=== PATIENT | female | born 1990 | race American Indian/Alaskan Native ===

== ENCOUNTER 2017-07-17 17:58 | Emergency (ER) | payer MEDICAID ==
[2017-07-17 18:15] VITALS: BP 145/91; PULSE 83; RESP 16; TEMP 98.4; O2SAT 100
--- NOTE | 2017-07-17 18:24 | ED PDOC ---
HPI: General Adult Time Seen by Provider: 07/17/17 18:16 Chief Complaint (Nursing): Med Refill Chief Complaint (Provider): Med Refill History Per: Patient History/Exam Limitations: no limitations Onset/Duration Of Symptoms: Hrs (prior to arrival ) Additional Complaint(s): Lynn Dennis is a 26 year old female, 13 weeks , presenting to the ED for a medication refill of Diclegis for morning sickness. Her last dose was taken 2 days prior to arrival and reports taking 2 tablets every day. The patients next appointment with her OBGYN is next Tuesday. PMD: Alton Dooley MD Past Medical History Reviewed: Historical Data, Nursing Documentation, Vital Signs Vital Signs: Last Vital Signs Temp 98.4 F 07/17/17 18:13 Pulse 83 07/17/17 18:13 Resp 16 07/17/17 18:13 BP 145/91 H 07/17/17 18:13 Pulse Ox 100 07/17/17 18:24 - Medical History PMH: No Chronic Diseases - Family History Family History: States: Unknown Family Hx - Home Medications Home Medications: Ambulatory Orders Medication Instructions Recorded Doxylamine/Pyridoxine HCl (B6) 2 each PO QPM #20 tablet. 07/17/17 [Antonio Amezquita 10-10 mg Tablet] - Allergies Allergies/Adverse Reactions: Allergies Allergy/AdvReac Type Severity Reaction Status Date / Time No Known Allergies Allergy Verified 07/17/17 18:13 Review of Systems ROS Statement: Except As Marked, All Systems Reviewed And Found Negative Physical Exam - Reviewed Nursing Documentation Reviewed: Yes Vital Signs Reviewed: Yes - Physical Exam Appears: Positive for: Non-toxic, No Acute Distress Head Exam: Positive for: ATRAUMATIC, NORMOCEPHALIC Skin: Positive for: Normal Color, Warm, Dry Eye Exam: Positive for: Normal appearance Neck: Positive for: Normal Respiratory: Negative for: Respiratory Distress Neurologic/Psych: Positive for: Alert, Oriented - ECG O2 Sat by Pulse Oximetry: 100 (RA) Pulse Ox Interpretation: Normal Medical Decision Making Medical Decision Making: Time: 18:16 Impression: Med Refill Plan: Rx Diclegis and follow up with OBGYN. Scribe Attestation: Documented by Bridgett Lopes, acting as a scribe for Angy Rodrigez PA-C. Provider Scribe Attestation: All medical record entries made by the Scribe were at my direction and personally dictated by me. I have reviewed the chart and agree that the record accurately reflects my personal performance of the history, physical exam, medical decision making, and the department course for this patient. I have also personally directed, reviewed, and agree with the discharge instructions and disposition. Disposition - Clinical Impression Clinical Impression: Medication refill, Nausea/vomiting in - Disposition Disposition Time: 18:27 Condition: STABLE Prescriptions: Doxylamine/Pyridoxine HCl (B6) [Antonio Amezquita 10-10 mg Tablet] 2 each PO QPM #20 tablet. Instructions: Doxylamine/Pyridoxine (By mouth) Forms: [employer] (Libyan), [facility] ED School/Work Excuse
== END 2017-07-17 18:35 | disposition home or self-care (01) ==
LOC: H.ER 17:58
DX: Z76.0 Encounter for issue of repeat prescription (principal); Z33.1 Pregnant state, incidental

== ENCOUNTER 2017-08-10 12:43 | Emergency (ER) | payer MEDICAID ==
[2017-08-10 12:54] VITALS: TEMP 98; O2SAT 100
[2017-08-10] MEDS ORDERED: Sodium Chloride 0.9% 1,000 ML IV STA (13:25)
--- NOTE | 2017-08-10 13:27 | ED PDOC ---
Syncope/Near Syncope/Dizziness Time Seen by Provider: 08/10/17 13:03 Chief Complaint (Nursing): Dizziness/Lightheaded History Per: Patient Additional Complaint(s): 26 yo female, , presents to ED for evaluation of dizziness and vomiting x 2 days. Patient is 17 weeks . Pt seen and evaluated by Dr. Dooley, sent Pt to ED pt was on Diclegis; however, ran out and RX too expensive. Zofran ODT was prescribed instead; however, Pt came to ED first. No vaginal bleeding. no abdominal pain Past Medical History Reviewed: Historical Data, Nursing Documentation, Vital Signs Vital Signs: Last Vital Signs Temp 98.0 F 08/10/17 12:52 Pulse 114 H 08/10/17 12:52 Resp 16 08/10/17 12:52 BP 152/100 H 08/10/17 12:52 Pulse Ox 100 08/10/17 12:52 - Medical History PMH: No Chronic Diseases - Surgical History Surgical History: No Surg Hx - Family History Family History: States: Unknown Family Hx - Living Arrangements Living Arrangements: With Family - Social History Current smoker - smoking cessation education provided: No Alcohol: Social Drugs: Denies - Immunization History Hx Tetanus Toxoid Vaccination: No - Home Medications Home Medications: Ambulatory Orders Medication Instructions Recorded Guaifenesin [Mucinex] 600 mg PO BID #14 tab.er.12h 01/21/17 Ondansetron ODT [Zofran ODT] 4 mg PO Q6 PRN #10 odt 03/04/17 Doxylamine/Pyridoxine HCl (B6) 2 each PO QPM #20 tablet. 07/17/17 [Dicgeovannygilonnie Amezquita 10-10 mg Tablet] Nitrofurantoin Macrocrystals 100 mg PO BID #10 cap 08/10/17 [Macrobid] - Allergies Allergies/Adverse Reactions: Allergies Allergy/AdvReac Type Severity Reaction Status Date / Time No Known Allergies Allergy Verified 08/10/17 12:51 Review of Systems ROS Statement: Except As Marked, All Systems Reviewed And Found Negative Gastrointestinal: Positive for: Nausea, Vomiting Physical Exam - Reviewed Nursing Documentation Reviewed: Yes Vital Signs Reviewed: Yes - Physical Exam Appears: Positive for: Well, Non-toxic, No Acute Distress Head Exam: Positive for: ATRAUMATIC, NORMAL INSPECTION, NORMOCEPHALIC Skin: Positive for: Normal Color, Warm, DRY Eye Exam: Positive for: EOMI, Normal appearance, PERRL ENT: Positive for: Normal ENT Inspection Neck: Positive for: Normal, Painless ROM Cardiovascular/Chest: Positive for: Regular Rate, Rhythm Respiratory: Positive for: CNT, Normal Breath Sounds Gastrointestinal/Abdominal: Positive for: Normal Exam, Bowel Sounds, Soft. Negative for: Tenderness Back: Positive for: Normal Inspection Extremity: Positive for: Normal ROM Neurologic/Psych: Positive for: Alert, Oriented - Laboratory Results Result Diagrams: 08/10/17 14:18 08/10/17 14:18 - ECG O2 Sat by Pulse Oximetry: 100 Medical Decision Making Medical Decision Making: IV access established and treatment initiated with Zofran and IVF labs resulted and reviewed with pt who demonstrated full understanding Pt doing well on re-eval. Tolerating PO Advised to continue on medications as prescribed by Dr. Dooley, follow up next week as scheduled. return to ED if at anytime symptoms worsen at anytime Disposition - Clinical Impression Clinical Impression: Nausea/vomiting in - Patient ED Disposition Is Patient to be Admitted: No - Disposition Disposition: Routine/Home Disposition Time: 15:50 Condition: STABLE Prescriptions: Nitrofurantoin Macrocrystals [Macrobid] 100 mg PO BID #10 cap Instructions: Hyperemesis Gravidarum (ED) Forms: [facility] (Swazi)
[2017-08-10 14:30] LABS: RBC URINE 3 /hpf (0-3); URINE BACTERIA OCC (<OCC); URINE BILIRUBIN NEGATIVE (NEGATIVE); URINE BLOOD NEGATIVE (NEGATIVE); URINE COLOR AMBER (YELLOW); URINE GLUCOSE (UA) 50 mg/dL (Normal); URINE KETONE 80 mg/dL (NEGATIVE); URINE LEUKOCYTE ESTERASE TRACE Leu/uL (Negative); URINE PROTEIN 100 mg/dL (NEGATIVE)
[2017-08-10 14:31] LABS: WBC URINE 15 /hpf (0-5)
[2017-08-10 14:34] LABS: BASO % 0.3 % (0.0-2.0); EOS % 0.1 % (0.0-4.0); HEMATOCRIT 38.5 % (34.0-47.0); LYMPH # 1.9 K/uL (1.0-4.3); LYMPH % 19.5 % (20.0-40.0); MEAN CELL VOLUME 88.1 fl (81.0-99.0); MEAN CORPUSCULAR HEMOGLOBIN 30.3 pg (27.0-31.0); MEAN CORPUSCULAR HGB CONC 34.4 g/dL (33.0-37.0); MEAN PLATELET VOLUME 8.2 fl (7.2-11.7); MONO # 0.6 K/uL (0.0-0.8); MONO % 6.3 % (0.0-10.0); NEUT % 73.8 % (50.0-75.0); RED CELL DISTRIBUTION WIDTH 14.5 % (11.5-14.5); WHITE BLOOD COUNT 9.5 K/uL (4.8-10.8)
[2017-08-10 14:42] LABS: ALB/GLOB RATIO 1.3 (1.0-2.1); ALKALINE PHOSPHATASE 55 U/L (38-126); ALT/SGPT 48 U/L (9-52); AST/SGOT 39 U/L (14-36); BILIRUBIN,TOTAL 0.2 mg/dl (0.2-1.3); BLOOD UREA NITROGEN 7 mg/dl (7-17); CALCIUM 9.4 mg/dL (8.4-10.2); CARBON DIOXIDE 23 mmol/L (22-30); CHLORIDE 104 mmol/L (98-107); GFR AFRICAN-AMERICAN > 60; GLUCOSE,RANDOM 77 mg/dL (65-105); POTASSIUM 3.5 MMOL/L (3.6-5.0); SODIUM 138 mmol/l (132-148); TOTAL PROTEIN 7.2 G/DL (6.3-8.2)
[2017-08-10 16:17] VITALS: BP 138/81; PULSE 80; RESP 18
== END 2017-08-10 16:18 | disposition home or self-care (01) ==
LOC: H.ER 12:43
DX: O21.1 Hyperemesis gravidarum with metabolic disturbance (principal)
CPT/HCPCS: 80053; 81003; 81025; 83690; 84702; 85025; 96360; 99285; J2405; J7040

== ENCOUNTER 2018-01-22 21:10 | Inpatient (IN) | payer MEDICAID ==
[2018-01-22 21:43] VITALS: BMI 40.8
[2018-01-22] MEDS ORDERED: ceFAZolin 2 GM in Sodium Chloride 0.9% 100 ML IVPB ONE (21:45)
[2018-01-22] MEDS: Lactated Ringer's 1,000 ML IV SCH ×2 (22:00→22:52)
[2018-01-22 22:17] LABS: BASO % 0.5 % (0.0-2.0); EOS % 0.2 % (0.0-4.0); HEMOGLOBIN 10.8 g/dL (12.0-16.0); LYMPH # 1.4 K/uL (1.0-4.3); LYMPH % 17.1 % (20.0-40.0); MEAN CELL VOLUME 83.4 fl (81.0-99.0); MEAN CORPUSCULAR HEMOGLOBIN 27.4 pg (27.0-31.0); MEAN CORPUSCULAR HGB CONC 32.9 g/dL (33.0-37.0); MEAN PLATELET VOLUME 7.4 fl (7.2-11.7); MONO # 0.8 K/uL (0.0-0.8); MONO % 9.3 % (0.0-10.0); NEUT # 5.9 K/uL (1.8-7.0); NEUT % 72.9 % (50.0-75.0); NRBC % 0.1 % (0.0-0.0); RBC 3.93 Mil/uL (3.80-5.20); RED CELL DISTRIBUTION WIDTH 14.7 % (11.5-14.5); WHITE BLOOD COUNT 8.1 K/uL (4.8-10.8)
[2018-01-22] MEDS ORDERED: Oxytocin 30 units/LR 500ML 30 UNITS/500 ML BAG IV ONE (22:20)
[2018-01-22] MEDS ORDERED: Morphine 1 mg/ml preservative-free Inj(Duramorph) ONE (22:24)
[2018-01-22] MEDS ORDERED: Sodium Chloride 0.9% 10 ML IV ONE (22:24)
[2018-01-22] MEDS ORDERED: ePHEDrine 50 mg/ml Inj ONE (22:24)
[2018-01-22] MEDS ORDERED: Phenylephrine 10 mg/ml Inj ONE (22:24)
[2018-01-22] MEDS ORDERED: DiphenhydrAMINE 50 mg/ml Inj IVP PRN (23:44)
[2018-01-22] MEDS ORDERED: Oxytocin 30 units/LR 500ML 30 UNITS/500 ML BAG IV SCH (23:45)
[2018-01-22] MEDS ORDERED: Lactated Ringer's 1,000 ML IV SCH (23:45)
[2018-01-22 23:46] LABS: ALBUMIN 3.7 g/dL (3.5-5.0); ALT/SGPT 35 U/L (9-52); AST/SGOT 31 U/L (14-36); BLOOD UREA NITROGEN 7 mg/dl (7-17); CALCIUM 9.4 mg/dL (8.4-10.2); GFR AFRICAN-AMERICAN > 60; GFR NON-AFRICAN AMERICAN > 60
[2018-01-22] MEDS ORDERED: Oxycodone/Acetaminophen 5/325 mg Tab PO PRN (23:48)
--- NOTE | 2018-01-23 00:07 | OBDS ---
DELIVERY PERSONNEL Delivery Doctor: Jose Bhandari MD Scrub Nurse: Beth Fish [facility] Professional: Carlos Preston RN Anesthesiologist: Rito Chao MD Resident: Paulo Rodriguez MD MATERNAL INFORMATION Delivery Anesthesia: Spinal Medications in Delivery: Pitocin 30 units in 500 mls/Ancef 2 gms Estimated Blood Loss (ml): 900 Placenta Cultured: No Maternal Complications: None Provider Comments: Surgeon: Dr. Bhandari Granite Cutter Apprentice: Dr. Rodriguez, PGY-1 Pre-op dx: active genital herpes outbreak in labor Surgery: Primary LTCS Post-op Dx: Same Finidings: live female infant 7lbs 4 oz, 9/9, grossly nml tubes, ovaries, placenta, uterus EBL: 900mL UO: 100mL Total input: 1000mL Anesthesia: Spinal by Dr. Chao Complications: None Condition: Stable Pathology: Placenta LABOR SUMMARY EDC: 01/19/2018 00:00 No. Babies in Womb: 1 Attempted: No Labor Anesthesia: None LABOR INFORMATION Reason for Induction: Not Applicable Onset of Labor: 01/22/2018 19:00 Oxytocin: N/A Group B Beta Strep: Negative Steroids Given: None Reason Steroids Not Administered: Not Applicable MEMBRANES Membranes Rupture Method: Artificial Rupture of Membranes: 01/22/2018 23:05 Length of Rupture (hrs): 0.00 Amniotic Fluid Color: Clear Amniotic Fluid Amount: Small Amniotic Fluid Odor: Normal STAGES OF LABOR Stage 3 hrs: 0 Stage 3 min: 1 Total Time in Labor hrs: 4 Total Time in Labor min: 6 CSECTION DELIVERY Primary Indication: Active Genital Herpes Secondary Indication: N/A CSection Urgency: Non Elective CSection Incidence: Primary Labor: Labor Elective: Nonelective CSection Incision: Lower Uterine Transverse BABY A INFORMATION Delivery Date/Time: 01/22/2018 23:05 Method of Delivery: Born in Route : No : N/A Forceps: N/A Vacuum Extraction: N/A Shoulder Dystocia : No SHOULDER DYSTOCIA BABY A Infant Delivery Date/Time: 01/22/2018 23:05 PRESENTATION/POSITION BABY A Presentation: Cephalic Cephalic Presentation: Vertex Breech Presentation: N/A PLACENTA INFORMATION BABY A Placenta Delivery Time : 01/22/2018 23:06 Placenta Method of Delivery: Manual Removal Placenta Status: Delivered SCORES BABY A Heart Rate 1 min: >100 bpm Resp Effort 1 min: Good Cry Reflex Irritability 1 min: Cough or Sneeze or Pulls Away Muscle Tone 1 min: Active Motion Color 1 min: Body [place], Extremities Blue Resuscitation Effort 1 min: N/A SCORE 1 MIN: 9 Heart Rate 5 min: >100 bpm Resp Effort 5 min: Good Cry Reflex Irritability 5 min: Cough or Sneeze or Pulls Away Muscle Tone 5 min: Active Motion Color 5 min: Body [place], Extremities Blue Resuscitation Effort 5 min: N/A SCORE 5 MIN: 9 INFORMATION BABY A Gestational Age at Delivery: 40.3 Gestational Status: Term Infant Outcome : Liveborn Condition : Stable Infant Sex: Female IDENTIFICATION/MEDS BABY A ID Band Number: [id number] ID Band Location: Left Leg; Left Arm WEIGHT/LENGTH BABY A Birthweight (gms): 3300 Weight (lb): 7 Infant Weight (oz): 4 CORD INFORMATION BABY A No. Cord Vessels: 3 Nuchal Cord : N/A Nuchal Cord Other: N/A True Knot: N/A Infant Cord pH Baby Arterial: N/A Cord pH Baby Venous: N/A Cord Blood Taken: Yes Banking/Donate Info: N/A Suction: Mouth; Nose
--- NOTE | 2018-01-23 00:12 | OBADHP ---
Datetime: 01/22/2018 21:55 Admit Comment, IP Provider: CC: CTX HPI: 27 YO @ 40.3 wks IUP presents to [facility] for ctx. Pt states that her ctx started earlier today and in the past hour her ctx have become more painful. Ctx every 4 mins and pain is rated as a 6/10. Endorsing good FM, no VB, LOF. Last PO intake 8AM. Of note, pt is taking using valtrex for HSV-2 prophylaxis; feeling pain and buring sensation in pe r perineal area since Sat. MD: Dr. 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 HIV neg, RPR neg, GBS neg. -admit pt -start protocal -IV fluids -abx -blood work Pt seen and examined with attending Dr. Elisabet Mendoza Jennifer, PGY I Addendum by Dr. Bhandari: I have evaluated the patient independently and I agree with the above Pelvic Type - PN: Adequate Extremities - PN: Normal Abdomen - PN: Normal Back - PN: Not Done Breast - PN: Not Done Lungs - PN: Normal Heart - PN: Normal Thyroid - PN: Not Done Neurologic - PN: Normal HEENT - PN: Normal General - PN: Normal FHR - Baseline A Provider: 125 Vital Signs Provider: Reviewed IP Chief Complaint: Uterine contractions NICHD Variability Prov Fetus A: Moderate 6-25bpm NICHD Accel Fetus A IP Provider: [id number] FHR Category Provider Fetus A: Category I Genitourinary Exam: Normal DTRs - PN: Not Done EGA AdmitDate IP: 40.3 IP Adm Impression: Term, intrauterine IP Admit Plan: Admit to unit; Initiate Section protocol; Observation/Evaluation
[2018-01-23 00:48] LABS: PARTIAL THROMBOPLASTIN TIME 33.4 Seconds (25.6-37.1); PROTHROMBIN TIME 10.6 Seconds (9.8-13.1)
[2018-01-23 06:14] LABS: BASO % 0.2 % (0.0-2.0); EOS % 0.1 % (0.0-4.0); HEMOGLOBIN 8.9 g/dL (12.0-16.0); LYMPH # 1.6 K/uL (1.0-4.3); LYMPH % 10.8 % (20.0-40.0); MEAN CELL VOLUME 83.2 fl (81.0-99.0); MEAN CORPUSCULAR HEMOGLOBIN 27.5 pg (27.0-31.0); MEAN CORPUSCULAR HGB CONC 33.1 g/dL (33.0-37.0); MONO # 1.4 K/uL (0.0-0.8); MONO % 9.2 % (0.0-10.0); NEUT # 11.9 K/uL (1.8-7.0); NEUT % 79.7 % (50.0-75.0); RBC 3.24 Mil/uL (3.80-5.20)
[2018-01-23] MEDS: Oxycodone/Acetaminophen 5/325 mg Tab PO PRN ×3 (06:39→22:02)
--- NOTE | 2018-01-23 10:26 | OBPPN ---
Datetime: 01/23/2018 10:21 PP Pain Prov: Within normal limits PP Nausea Prov: Denies PP Flatus Prov: Yes PP Breasts Prov: Normal PP Heart Prov: Normal PP Lungs Prov: Normal PP Abdomen/Uterus Prov: Normal PP Lochia Prov: Normal PP Vulva/Perineum Prov: Normal PP CVA Tenderness Prov: Normal PP Extremities Prov: Normal PP Comments Phys Exam Prov: Fundus firm under umbilicus Incision clean/dry/intact PP Impression Prov: Normal progression PP Plan Prov: Continue present management PP Progress Note Prov: Patient denies CP, no SOB, no N/V, tolerating Po diet, ambulating/voiding min imal, no flatus, mild lochia, abdominal pain tolerable with meds A/P POD #1 1. Reg diet 2. Percocet/Motrin prn pain 3. Encourage ambulation/ 4. Mylicon for gas pain 5. Continue postop orders IP PP Procedures: None Vital Signs Provider PP: Reviewed; Within Normal Limits
--- NOTE | 2018-01-23 11:04 | OP ---
PROCEDURE DATE: 01/22/2018 PREOPERATIVE DIAGNOSIS: Active genital herpes outbreak in labor. POSTOPERATIVE DIAGNOSIS: Active genital herpes outbreak in labor. SURGERY: Primary low-transverse section. SURGEON: Brittney Bhandari MD RN REGISTRY: Dr. Rodriguez, PGY-1 TYPE OF ANESTHESIA: Spinal. ANESTHESIA ADMINISTERED BY: Dr. Chao. FINDINGS: White female infant, 7 pounds 4 ounces, 9 and 9 Apgars. Grossly normal tubes, ovaries, placenta, and uterus. ESTIMATED BLOOD LOSS: 900 mL. URINE OUTPUT: 100 mL. TOTAL FLUID INPUT: 1000 mL. TYPE OF ANESTHESIA: Spinal ANESTHESIOLOGIST: Alex Chao MD COMPLICATIONS: None. CONDITION: Stable. PATHOLOGY SPECIMEN: Cord blood. INDICATIONS: This is a G4, P1-0-2-1 at 40 weeks and 3 days, who presented to labor and delivery on an active labor 5 cm in sriram every 3 minutes. The patient had a history of genital herpes, had been on prophylaxis since 36 weeks, but the day prior had felt a lesion in the perianal area. On exam, it was confirmed that there was toxin active herpetic lesion. We discussed with the patient that there is an increase risk of transmission to the baby with a vaginal delivery versus , although does not completely eliminate the risk, the risk about 1% verus 7% where the transmission with vaginal. It was advised to the patient to proceed with for mode of delivery in order to decrease the transmission rate to the infant. The patient agreed with the plan and the patient was consented for . Risks and benefits of surgery including risk of bleeding, infection, damage to surrounding organs such as bowel, bladder, ureter, and uterus were discussed. The patient verbalized understanding and signed informed consent. DESCRIPTION OF PROCEDURE: The patient was taken to the OR. Ancef was given preoperatively and anesthesia placed bilaterally. The patient was prepped and draped in a normal sterile fashion in dorsal supine position with a leftward tilt. A Pfannenstiel skin incision was made with the scalpel and carried through the underlying layer of fascia with the scalpel and the Bovie. The fascia was incised in the midline. The incision was extended laterally with the Bovie. Nav clamp was used to tent up the inferior aspect of this incision, which we dissected off the underlying pyramidalis of muscles with the Bovie. In similar fashion, we tented up the superior aspect of this incision, which we dissected off of the underlying rectus abdominis muscles with the Bovie. There was some bleeding in the lateral aspect of the muscle which we tamponaded with few interrupted 0 Vicryl sutures. Muscles were bluntly at the midline. The peritoneum was identified, grasped with hemostats and entered sharply with the Metzenbaum scissors. Incision was extended superiorly and inferiorly with good visualization of all underlying organs. The bladder blade was inserted. The vesicouterine peritoneum was identified, grasped with pickups and a bladder flap was created with the Metzenbaum scissors. The lower uterine segment was incised in a transverse fashion with the scalpel and the uterine cavity was entered, infant was delivered in the cephalic presentation atraumatically followed by shoulder and rest of the atraumatically. Mouth and nose were suctioned. The infant was handed off to the awaiting pediatric Team. The placenta was extracted manually. The uterus was exteriorized, cleared of all clots. Uterine incision was repaired with an 0 Vicryl stitch. Secondly imbricating incision was done with a 0 Monocryl stitch. There were multiple spots on hysterotomy site that needed reinforcement with 0 Vicryl sutures. Multiple interrupted and [id number]-gd-geozil were placed. Uterus was returned to the abdomen. Gutters were cleared of all clots. Again, uterine incision was inspected and appeared to be hemostatic. The peritoneum was closed with 2-0 Monocryl and muscles were reapproximated with same stitch. The fascia was closed with 0 Vicryl stitch and the subcutaneous fat was reapproximated with plain gut suture. The skin was closed with 4-0 Monocryl. Sponge, lap, and needle counts were correct x4. The patient was taken to the recovery room in stable condition. There are no other complications. Brittney Bhandari MD
[2018-01-24] MEDS: Oxycodone/Acetaminophen 5/325 mg Tab PO PRN (04:59)
[2018-01-24] MEDS: Simethicone 80 mg Chewtab PO SCH ×3 (10:13→17:36)
--- NOTE | 2018-01-24 14:06 | OBPPN ---
Datetime: 01/24/2018 14:03 PP Pain Prov: Within normal limits PP Nausea Prov: Denies PP Flatus Prov: Yes PP BM Prov: No PP Breasts Prov: Normal PP Heart Prov: Normal PP Lungs Prov: Normal PP Abdomen/Uterus Prov: Normal PP Lochia Prov: Normal PP Vulva/Perineum Prov: Normal PP CVA Tenderness Prov: Normal PP Extremities Prov: Normal PP C/S Incision Prov: Normal PP Progress Prov: Normal PP Impression Prov: Normal progression PP Plan Prov: Continue present management PP Progress Note Prov: H/H 06/19 A: S/P c-sectoin day 2 plan: cont post op care; Dulcolax tonight if no BM Vital Signs Provider PP: Reviewed; Within Normal Limits
[2018-01-25] MEDS ORDERED: Chlorhexidine Gluconate 1 APPL/PKT TP ONE (01:44)
--- NOTE | 2018-01-25 07:27 | OBDCSUM ---
Datetime: 01/25/2018 07:24 Discharged to, Provider: Home Follow up at, Provider: Dr. Dooley Disch Instr Activity: Normal activity; May Shower Disch Instr Diet: Regular Discharge Instructions, Provider: Routine instructions given Discharge Diagnosis, Provider: Term Delivered Discharge Time: 01/25/2018 07:25 Follow up in weeks, Provider: 1 week Disch Activity Restrictions: No exercising; No lifting; No driving; No sexual activity; Nothing in v agina - [employer], tampons, douche
--- NOTE | 2018-01-25 07:27 | OBPPN ---
Datetime: 01/25/2018 07:23 PP Pain Prov: Within normal limits PP Nausea Prov: Denies PP Flatus Prov: Yes PP BM Prov: No PP Abdomen/Uterus Prov: Normal PP Lochia Prov: Normal PP Vulva/Perineum Prov: Not Done PP C/S Incision Prov: Normal PP Progress Prov: Not Applicable PP Comments Phys Exam Prov: Incision: intact PP Impression Prov: Normal progression PP Plan Prov: Discharge PP Progress Note Prov: POD 3 s/p primary LTCS for herpes outbreak Rx's motrin, percocet, and ferrous sulfate given Discharge home today Vital Signs Provider PP: Reviewed
[2018-01-25] MEDS ORDERED: Measles, Mumps, and Rubella 0.5 ML VIAL SC ONE (08:00)
[2018-01-25] MEDS: Simethicone 80 mg Chewtab PO SCH (09:06)
[2018-01-25 18:04] VITALS: BP 134/88; PULSE 90; RESP 20; TEMP 97.8; O2SAT 99
== END 2018-01-25 13:55 | disposition home or self-care (01) | DRG 371 ==
LOC: H.EROB2 21:10 → H.L&D 22:22 → H.OB/GYN 01-23 02:45
PROVIDERS: ADMIT Obstetrics & Gynecology; ATTEND Obstetrics & Gynecology
PROC: 10D00Z1 Extraction of Products of Conception, Low, Open Approach (ICD-10-PCS; principal; 2018-01-22)
DX: O98.32 Other infections with a predominantly sexual mode of transmission complicating childbirth (principal); A60.09 Herpesviral infection of other urogenital tract; Z3A.40 40 weeks gestation of pregnancy; Z37.0 Single live birth

== ENCOUNTER 2018-05-15 14:33 | Emergency (ER) | payer MEDICAID ==
[2018-05-15 14:33] VITALS: BMI 40.8
[2018-05-15 15:19] VITALS: BP 132/74; PULSE 80; RESP 20; TEMP 98.3; O2SAT 100
--- NOTE | 2018-05-15 16:05 | ED PDOC ---
HPI: General Adult Time Seen by Provider: 05/15/18 15:29 Chief Complaint (Nursing): Back Pain Chief Complaint (Provider): back pain and cyst on axilla History Per: Patient History/Exam Limitations: no limitations Onset/Duration Of Symptoms: Days Current Symptoms Are (Timing): Intermittent Episodes Additional Complaint(s): 27 year old female presents to the ED for an evaluation of back pain and cyst on left side of chest. Patient reports pain on the upper neck area radiating to the back. States the area is sore and feels the bone moving. She also has cyst on the left axilla area that is intermittent and she treats the area with tree- tea oil compress. PMD: Alton Dooley Past Medical History Reviewed: Historical Data, Nursing Documentation, Vital Signs Vital Signs: Last Vital Signs Temp 98.3 F 05/15/18 15:16 Pulse 80 05/15/18 15:16 Resp 20 05/15/18 15:16 BP 132/74 05/15/18 15:16 Pulse Ox 100 05/15/18 16:13 - Medical History PMH: No Chronic Diseases Denies: Depression, Diabetes, HTN - Family History Family History: States: Unknown Family Hx - Immunization History Hx Tetanus Toxoid Vaccination: No - Home Medications Home Medications: Ambulatory Orders Medication Instructions Recorded Ferrous Sulfate 325 mg PO DAILY #60 tablet 01/25/18 Ibuprofen [Motrin Tab] 600 mg PO Q6H PRN #30 tab 01/25/18 - Allergies Allergies/Adverse Reactions: Allergies Allergy/AdvReac Type Severity Reaction Status Date / Time No Known Allergies Allergy Verified 01/22/18 21:43 Review of Systems ROS Statement: Except As Marked, All Systems Reviewed And Found Negative Musculoskeletal: Positive for: Back Pain Skin: Positive for: Other (cyst on left axilla) Physical Exam - Reviewed Nursing Documentation Reviewed: Yes Vital Signs Reviewed: Yes - Physical Exam Appears: Positive for: Non-toxic, No Acute Distress Head Exam: Positive for: ATRAUMATIC, NORMAL INSPECTION, NORMOCEPHALIC Skin: Positive for: Warm (no hematoma). Negative for: Normal Color (multiple small abscess on left axilla, tracking noted) Eye Exam: Positive for: Normal appearance Neck: Positive for: Normal Back: Positive for: Normal Inspection (c-spine nontender) Neurologic/Psych: Positive for: Alert, Oriented - ECG O2 Sat by Pulse Oximetry: 100 (RA) Pulse Ox Interpretation: Normal Medical Decision Making Medical Decision Making: Time: 155 Initial Plan: --ED Urine --Cervical Spine AP & Lateral [RAD] Motrin offered to the patient due to sore muscle but she denied. XR normal. Scribe Attestation: Documented by Liza Espinosa, acting as a scribe for Angy Rodrigez PA-C. Provider Scribe Attestation: All medical record entries made by the Scribe were at my direction and personally dictated by me. I have reviewed the chart and agree that the record accurately reflects my personal performance of the history, physical exam, medical decision making, and the department course for this patient. I have also personally directed, reviewed, and agree with the discharge instructions and disposition. Disposition - Clinical Impression Clinical Impression: Back pain - Patient ED Disposition Is Patient to be Admitted: No - Disposition Referrals: Juan Jose Garrett III, MD [Staff Provider] - Disposition: Routine/Home Disposition Time: 17:38 Condition: STABLE Additional Instructions: DANIEL SANTOS, thank you for letting us take care of you today. Your provider was Jesse Joseph MD and you were treated for BACK PAIN. The emergency medical care you received today was directed at your acute symptoms. If you were prescribed any medication, please fill it and take as directed. It may take several days for your symptoms to resolve. Return to the Emergency Department if your symptoms worsen, do not improve, or if you have any other problems. Please contact your doctor or call one of the physicians/clinics you have been referred to that are listed on the Patient Visit Information form that is included in your discharge packet. Bring any paperwork you were given at discharge with you along with any medications you are taking to your follow up visit. Our treatment cannot replace ongoing medical care by a primary care provider outside of the emergency department. Thank you for allowing the [facility] team to be part of your care today. If you had an X-Ray or CT scan: A Radiologist will review the ED reading if any change in treatment is needed we will contact you. If you had a blood, urine, or wound culture: It will take several days for the results, if any change in treatment is needed we will contact you. If you had an STI test: It will take 48 hours for the results. Please call after 1 week if you have not heard back. Instructions: Upper Back Pain (DC) Forms: [employer] ([place])
--- NOTE | 2018-05-15 17:28 | RAD ---
Date of service: 05/15/2018 PROCEDURE: Cervical Spine Radiographs. HISTORY: Pain. COMPARISON: None. FINDINGS: BONES: Alignment maintained. No fracture. Dens Intact. DISC SPACES: Normal. SOFT TISSUES: Normal. No prevertebral soft tissue swelling. OTHER FINDINGS: None. IMPRESSION: Normal cervical spine radiographs
== END 2018-05-15 17:53 | disposition home or self-care (01) ==
LOC: H.ER 14:33 → SUPCPDRO 14:33 → H.ER 17:53
DX: M54.9 Dorsalgia, unspecified (principal)

== ENCOUNTER 2018-07-07 16:02 | Emergency (ER) | payer MEDICAID ==
[2018-07-07 16:02] VITALS: BMI 40.8
--- NOTE | 2018-07-07 17:41 | ED PDOC ---
HPI: Abdomen Time Seen by Provider: 07/07/18 16:45 Chief Complaint (Nursing): GI Problem Chief Complaint (Provider): GI Problem History Per: Patient History/Exam Limitations: no limitations Onset/Duration Of Symptoms: Days (x1) Current Symptoms Are (Timing): Still Present Additional Complaint(s): 27 year old female presents to ED with with a complaint of 2 episodes of bright bloody stools, left-sided abdominal cramping and slight rectal pain since this morning. She denies any fever, vaginal bleeding, urinary complaints, vomiting, diarrhea, current menses, medication for relief, similar symptoms in the past, recent ABX use or travel. Patient additionally states she had constipation for the last 2 days prior. PMD: none provided Past Medical History Reviewed: Historical Data, Nursing Documentation, Vital Signs Vital Signs: Last Vital Signs Temp 98.3 F 07/07/18 16:25 Pulse 86 07/07/18 16:25 Resp 18 07/07/18 16:25 BP 107/75 07/07/18 16:25 Pulse Ox 100 07/07/18 17:53 - Medical History PMH: No Chronic Diseases Denies: Depression, Diabetes, HTN - Surgical History Surgical History: - Family History Family History: States: No Known Family Hx - Living Arrangements Living Arrangements: With Family - Immunization History Hx Tetanus Toxoid Vaccination: No - Home Medications Home Medications: Ambulatory Orders Medication Instructions Recorded Ferrous Sulfate 325 mg PO DAILY #60 tablet 01/25/18 Ibuprofen [Motrin Tab] 600 mg PO Q6H PRN #30 tab 01/25/18 Doxycycline Monohydrate 100 mg PO BID #20 tablet 05/15/18 Docusate Sodium [Colace] 100 mg PO BID #60 capsule 07/07/18 - Allergies Allergies/Adverse Reactions: Allergies Allergy/AdvReac Type Severity Reaction Status Date / Time No Known Allergies Allergy Verified 07/07/18 16:25 Review of Systems ROS Statement: Except As Marked, All Systems Reviewed And Found Negative Constitutional: Negative for: Fever Gastrointestinal: Positive for: Abdominal Pain (left-sided cramping), Constipation, Hematochezia, Rectal Pain. Negative for: Vomiting, Diarrhea Genitourinary Female: Negative for: Dysuria, Frequency, Incontinence, Hematuria , Vaginal Bleeding Physical Exam - Reviewed Nursing Documentation Reviewed: Yes Vital Signs Reviewed: Yes - Physical Exam Appears: Positive for: Well, Non-toxic, No Acute Distress Head Exam: Positive for: ATRAUMATIC, NORMAL INSPECTION, NORMOCEPHALIC Skin: Positive for: Normal Color Eye Exam: Positive for: Normal appearance ENT: Positive for: Normal ENT Inspection Neck: Positive for: Normal Cardiovascular/Chest: Positive for: Regular Rate, Rhythm, Chest Non Tender Respiratory: Positive for: Normal Breath Sounds. Negative for: Respiratory Distress Gastrointestinal/Abdominal: Positive for: Other (obese) - Laboratory Results Result Diagrams: 07/07/18 17:53 07/07/18 17:53 - ECG O2 Sat by Pulse Oximetry: 100 (RA) Pulse Ox Interpretation: Normal Medical Decision Making Medical Decision Making: Initial Impression: Hematochezia Differential Diagnosis: colitis, diverticulitis, diverticulosis, hemorrhoids Initial Plan: * Labs Time: 1741 --Rectal exam performed with female Jazzy Bauman, present as mechanical detailer. Normal exam: (-) hemorrhoids, (-) tenderness, or (-) mass. Scribe Attestation: Documented by Judi Neal, acting as a scribe for Cheyanne Colvin MD. Provider Scribe Attestation: All medical record entries made by the Scribe were at my direction and personally dictated by me. I have reviewed the chart and agree that the record accurately reflects my personal performance of the history, physical exam, medical decision making, and the department course for this patient. I have also personally directed, reviewed, and agree with the discharge instructions and disposition. Disposition - Clinical Impression Clinical Impression: Bloody stool, Iron deficiency anemia - Patient ED Disposition Is Patient to be Admitted: No Doctor Will See Patient In The: Office Counseled Patient/Family Regarding: Studies Performed, Diagnosis, Need For Followup - Disposition Referrals: Marietta Cristobal MD [Medical Doctor] - Disposition: Routine/Home Disposition Time: 20:17 Condition: GOOD Additional Instructions: DANIEL SANTOS, thank you for letting us take care of you today. Your provider was Cheyanne Colvin MD and you were treated for ABD PAIN. The emergency medical care you received today was directed at your acute symptoms. If you were prescribed any medication, please fill it and take as directed. It may take several days for your symptoms to resolve. Return to the Emergency Department if your symptoms worsen, do not improve, or if you have any other problems. Please contact your doctor or call one of the physicians/clinics you have been referred to that are listed on the Patient Visit Information form that is included in your discharge packet. Bring any paperwork you were given at discharge with you along with any medications you are taking to your follow up visit. Our treatment cannot replace ongoing medical care by a primary care provider outside of the emergency department. Thank you for allowing the [facility] team to be part of your care today. If you had an X-Ray or CT scan: A Radiologist will review the ED reading if any change in treatment is needed we will contact you. If you had a blood, urine, or wound culture: It will take several days for the results, if any change in treatment is needed we will contact you. If you had an STI test: It will take 48 hours for the results. Please call after 1 week if you have not heard back. Prescriptions: Docusate Sodium [Colace] 100 mg PO BID #60 capsule Instructions: Anemia Caused by Low Iron, Bloody Stools Forms: [employer] (Lithuanian)
[2018-07-07 18:12] LABS: BASO % 0.6 % (0.0-2.0); EOS % 0.7 % (0.0-4.0); HEMOGLOBIN 11.1 g/dL (12.0-16.0); LYMPH # 1.6 K/uL (1.0-4.3); LYMPH % 23.4 % (20.0-40.0); MEAN CELL VOLUME 72.5 fl (81.0-99.0); MEAN CORPUSCULAR HGB CONC 31.7 g/dL (33.0-37.0); MEAN PLATELET VOLUME 7.8 fl (7.2-11.7); MONO # 0.4 K/uL (0.0-0.8); MONO % 6.5 % (0.0-10.0); NEUT # 4.7 K/uL (1.8-7.0); NEUT % 68.8 % (50.0-75.0); RBC 4.81 Mil/uL (3.80-5.20); RED CELL DISTRIBUTION WIDTH 19.7 % (11.5-14.5); WHITE BLOOD COUNT 6.9 K/uL (4.8-10.8)
[2018-07-07 18:25] LABS: BLOOD UREA NITROGEN 11 mg/dl (7-17); CALCIUM 9.3 mg/dL (8.4-10.2); GFR NON-AFRICAN AMERICAN > 60
[2018-07-07 20:31] VITALS: BP 100/60; PULSE 72; RESP 17; TEMP 98.2; O2SAT 97
== END 2018-07-07 20:30 | disposition home or self-care (01) ==
LOC: H.ER 16:02
DX: K92.1 Melena (principal); D50.9 Iron deficiency anemia, unspecified

== ENCOUNTER 2018-10-11 21:25 | Emergency (ER) | payer MEDICAID ==
[2018-10-11 21:25] VITALS: BMI 40.8
[2018-10-11 21:35] VITALS: BP 138/83; RESP 16; TEMP 98.2; O2SAT 100
--- NOTE | 2018-10-11 22:43 | ED PDOC ---
HPI: Chest Pain Time Seen by Provider: 10/11/18 21:55 Chief Complaint (Nursing): Chest Pain Chief Complaint (Provider): Chest Pain History Per: Patient History/Exam Limitations: no limitations Onset/Duration Of Symptoms: Days (x2 weeks) Current Symptoms Are (Timing): Still Present Additional Complaint(s): Lynn Dennis is a 28 year old female with no past medical history, who presents to the emergency department complaining of chest pain. Patient states she has had chest pain with some difficulty breathing and shortness of breath at night, for the past x2 weeks with the most recent episode lasting x30 minutes and is non radiating. Patient states the pain is located in the middle of the chest but it went away with water. She no longer takes control pills. Patient also states she had a nightmare last night. She denies ever having these symptoms ever before. PMD: Alton Dooley Past Medical History Reviewed: Historical Data, Nursing Documentation, Vital Signs Vital Signs: Last Vital Signs Temp 98.2 F 10/11/18 21:32 Pulse 76 10/11/18 21:32 Resp 16 10/11/18 21:32 BP 138/83 10/11/18 21:32 Pulse Ox 100 10/11/18 21:32 - Medical History PMH: Denies: Depression, Diabetes, HTN - Surgical History Surgical History: - Family History Family History: States: Diabetes - Immunization History Hx Tetanus Toxoid Vaccination: No - Home Medications Home Medications: Ambulatory Orders Medication Instructions Recorded RX: Ferrous Sulfate 325 mg PO DAILY #60 tablet 01/25/18 RX: Ibuprofen [Motrin Tab] 600 mg PO Q6H PRN #30 tab 01/25/18 RX: Doxycycline Monohydrate 100 mg PO BID #20 tablet 05/15/18 Docusate Sodium [Colace] 100 mg PO BID #60 capsule 07/07/18 - Allergies Allergies/Adverse Reactions: Allergies Allergy/AdvReac Type Severity Reaction Status Date / Time No Known Allergies Allergy Verified 10/11/18 21:32 DIOGENES Risk Score for UA/NSTEMI - DIOGENES Risk Score Age > 64: NO 3 or more CAD Risk Factors: NO Known CAD (Stenosis greater than 50%): NO Aspirin use in past 7 days: NO Severe Angina: NO EKG ST changes greater than 0.5mm: NO Positive Cardiac Marker: NO DIOGENES Score: 0 Risk %: 5% Wells Criteria for PE - Wells Criteria for Pulmonary Embolism Clinical Signs and Symptoms of DVT: No P.E is #1 Diagnosis, or Equally Likely: No Heart Rate >100: No Immobilization at least 3 days;Surgery previous 4 weeks: No Previous, objectively diagnosed PE or DVT: No Hemoptysis: No Malignancy w/treatment within 6 months, or palliative: No Total Score: 0 Review of Systems ROS Statement: Except As Marked, All Systems Reviewed And Found Negative Cardiovascular: Positive for: Chest Pain Respiratory: Positive for: Shortness of Breath, Other (difficulty breathing ) Physical Exam - Reviewed Nursing Documentation Reviewed: Yes Vital Signs Reviewed: Yes - Physical Exam Appears: Positive for: Non-toxic, No Acute Distress Head Exam: Positive for: ATRAUMATIC, NORMOCEPHALIC Skin: Positive for: Normal Color, Warm, Dry Eye Exam: Positive for: Normal appearance, EOMI, PERRL ENT: Positive for: Normal ENT Inspection Neck: Positive for: Normal, Painless ROM, Supple Cardiovascular/Chest: Positive for: Regular Rate, Rhythm. Negative for: Murmur Respiratory: Positive for: Normal Breath Sounds. Negative for: Respiratory Distress Gastrointestinal/Abdominal: Positive for: Normal Exam, Soft. Negative for: Tenderness Back: Positive for: Normal Inspection. Negative for: L CVA Tenderness, R CVA Tenderness, Vertebral Tenderness Extremity: Positive for: Normal ROM. Negative for: Pedal Edema, Deformity Neurologic/Psych: Positive for: Alert, Oriented - Laboratory Results Result Diagrams: 10/11/18 23:06 10/11/18 23:06 - ECG ECG Rhythm: Positive for: Normal QRS, Normal ST Segment, Sinus Rhythm (normal) Rate: 98 O2 Sat by Pulse Oximetry: 100 (RA) Pulse Ox Interpretation: Normal Medical Decision Making Medical Decision Making: Time: 2208 Impression: chest pain that resolved differential diagnosis includes but not limited to ACS, PE musculoskeletal pain, esophageal spasm, or anxiety. Plan: --EKG --BMP --Troponin I --ED urine --CBC with differential --Chest x-ray Scribe Attestation: Documented by Aayush Alejo, acting as a scribe for Cheyanne Colvin MD. Provider Scribe Attestation: All medical record entries made by the Scribe were at my direction and personally dictated by me. I have reviewed the chart and agree that the record accurately reflects my personal performance of the history, physical exam, medical decision making, and the department course for this patient. I have also personally directed, reviewed, and agree with the discharge instructions and disposition. Disposition - Clinical Impression Clinical Impression: Atypical chest pain, Epigastric pain - Patient ED Disposition Is Patient to be Admitted: No Doctor Will See Patient In The: Office Counseled Patient/Family Regarding: Studies Performed, Diagnosis - Disposition Referrals: [facility] [Outside] Disposition: Transfer of Care Disposition Time: 23:00 Condition: STABLE Additional Instructions: Follow up with primary medical doctor. Return to the emergency department if symptoms worsen or if new symptoms develop. Instructions: Acute Abdomen (Belly Pain), Adult (DC) Print Language: LUXEMBOURGISH Patient Signed Over To: Janet Doherty
--- NOTE | 2018-10-11 22:59 | ED PDOC ---
- Laboratory Results Result Diagrams: 10/11/18 23:06 10/11/18 23:06 - ECG ECG: Positive for: Interpreted By Me, Viewed By Me ECG Rhythm: Positive for: Normal QRS, Normal ST Segment, Sinus Rhythm (normal) O2 Sat by Pulse Oximetry: 100 (RA) Medical Decision Making Medical Decision Makin Patient care endorsed from Dr. Colvin to this provider pending CXR, labs, and reevaluation. 0046 Labs within normal limits, EKG normal, and CXR shows NAD. Lifestyle choices discussed with patient, and she admits to drinking heavily secondary to the holiday season. She notes she is looking for a PMD, so will give referral to the clinic. Otherwise, healthy lifestyle, improved diet, and exercise discussed with patient and she is to be discharged home. Scribe Attestation: Documented by Jazzy Alexander acting as a scribe for Janet Doherty MD. Provider Scribe Attestation: All medical record entries made by the Scribe were at my direction and personally dictated by me. I have reviewed the chart and agree that the record accurately reflects my personal performance of the history, physical exam, medical decision making, and the department course for this patient. I have also personally directed, reviewed, and agree with the discharge instructions and disposition. Disposition - Disposition Forms: [employer] (Korean)
[2018-10-11 23:26] LABS: BASO # 0.1 K/uL (0.0-0.2); BASO % 0.7 % (0.0-2.0); EOS # 0.1 K/uL (0.0-0.7); EOS % 1.3 % (0.0-4.0); HEMOGLOBIN 10.4 g/dL (12.0-16.0); LYMPH # 3.1 K/uL (1.0-4.3); LYMPH % 28.8 % (20.0-40.0); MEAN CELL VOLUME 72.8 fl (81.0-99.0); MEAN CORPUSCULAR HEMOGLOBIN 23.3 pg (27.0-31.0); MEAN PLATELET VOLUME 8.2 fl (7.2-11.7); MONO # 0.8 K/uL (0.0-0.8); NEUT # 6.8 K/uL (1.8-7.0); NEUT % 62.2 % (50.0-75.0); NRBC % 0.1 % (0.0-0.0); RBC 4.46 Mil/uL (3.80-5.20); RED CELL DISTRIBUTION WIDTH 17.5 % (11.5-14.5); WHITE BLOOD COUNT 10.9 K/uL (4.8-10.8)
[2018-10-11 23:40] LABS: BLOOD UREA NITROGEN 15 mg/dl (7-17); CALCIUM 8.9 mg/dL (8.4-10.2); GFR NON-AFRICAN AMERICAN > 60
--- NOTE | 2018-10-12 07:00 | CARD ---
APPROVED REPORT Date of service: 10/11/2018 EKG Measurement Heart [id number] <Conclusion> Normal sinus rhythm Normal ECG
--- NOTE | 2018-10-12 10:15 | RAD ---
Date of service: 10/11/2018 HISTORY: Chest pain COMPARISON: No prior. TECHNIQUE: Chest PA and lateral FINDINGS: LINES AND TUBES: None. LUNG AND PLEURA: The lungs are well inflated and clear. No pleural effusion or pneumothorax. HEART AND MEDIASTINUM: The heart is not enlarged. No aortic atherosclerotic calcification present. The hilar and mediastinal contours are within normal limits. SKELETAL STRUCTURES: The bony structures are within normal limits for the patient's age. VISUALIZED UPPER ABDOMEN: Normal. OTHER FINDINGS: None. IMPRESSION: No active pulmonary disease.
[2018-10-13 10:16] VITALS: PULSE 98
== END 2018-10-12 00:55 | disposition home or self-care (01) ==
LOC: H.ER 21:25
DX: R07.89 Other chest pain (principal); R10.13 Epigastric pain; F41.9 Anxiety disorder, unspecified

== ENCOUNTER 2019-01-20 16:03 | Emergency (ER) | payer MEDICAID ==
[2019-01-20 16:03] VITALS: BMI 40.8
[2019-01-20 16:14] VITALS: RESP 18; O2SAT 100
--- NOTE | 2019-01-20 16:50 | ED PDOC ---
HPI: Back Time Seen by Provider: 01/20/19 16:25 Chief Complaint (Nursing): Back Pain Chief Complaint (Provider): Back Pain History Per: Patient History/Exam Limitations: no limitations Onset/Duration Of Symptoms: Days (x4) Current Symptoms Are (Timing): Still Present Additional Complaint(s): Patient is a 28 y/o female with no significant PMHx who presents to the ED for evaluation of middle, lower back pain for the past four days. 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 Patient has been using back patches as well as taking Percocet (left over from her ) and Tylenol with no relief. Patient denies any further medical complaints. PCP: None Provided Past Medical History Reviewed: Historical Data, Nursing Documentation, Vital Signs Vital Signs: Last Vital Signs Temp 97.6 F 01/20/19 16:10 Pulse 77 01/20/19 16:10 Resp 18 01/20/19 16:10 BP 164/97 H 01/20/19 16:10 Pulse Ox 100 01/20/19 16:10 - Medical History PMH: No Chronic Diseases Denies: Depression, Diabetes, HTN - Surgical History Surgical History: - Family History Family History: States: Diabetes - Social History Current smoker - smoking cessation education provided: No Ex-Smoker (has not smoked in the last 12 months): No Alcohol: None Drugs: Denies - Immunization History Hx Tetanus Toxoid Vaccination: No - Home Medications Home Medications: Ambulatory Orders Medication Instructions Recorded Ferrous Sulfate 325 mg PO DAILY #60 tablet 01/25/18 Ibuprofen [Motrin Tab] 600 mg PO Q6H PRN #30 tab 01/25/18 Doxycycline Monohydrate 100 mg PO BID #20 tablet 05/15/18 Docusate Sodium [Colace] 100 mg PO BID #60 capsule 07/07/18 Cyclobenzaprine [Flexeril] 10 mg PO TID #27 tab 01/20/19 Diclofenac Potassium 50 mg PO BID #20 tablet 01/20/19 - Allergies Allergies/Adverse Reactions: Allergies Allergy/AdvReac Type Severity Reaction Status Date / Time No Known Allergies Allergy Verified 10/11/18 21:32 Review of Systems ROS Statement: Except As Marked, All Systems Reviewed And Found Negative Musculoskeletal: Positive for: Back Pain (middle lower) Physical Exam - Reviewed Nursing Documentation Reviewed: Yes Vital Signs Reviewed: Yes - Physical Exam Appears: Positive for: No Acute Distress Head Exam: Positive for: ATRAUMATIC, NORMAL INSPECTION, NORMOCEPHALIC Skin: Positive for: Normal Color, Warm, DRY Eye Exam: Positive for: EOMI, Normal appearance, PERRL Neck: Positive for: Normal, Painless ROM, Supple Cardiovascular/Chest: Positive for: Regular Rate, Rhythm. Negative for: Murmur Respiratory: Positive for: Normal Breath Sounds. Negative for: Respiratory Distress Gastrointestinal/Abdominal: Positive for: Normal Exam, Soft. Negative for: Tenderness Back: Positive for: Vertebral Tenderness (at L1-L3), Decreased ROM (lumbar range of motion exam: foward flexion 45 degrees, backward flexion 20 degrees, bilateral lateral flexion 30 degrees). Negative for: L CVA Tenderness, R CVA Tenderness, Other (paraspinal tenderness) Extremity: Positive for: Normal ROM. Negative for: Pedal Edema, Deformity Neurological/Psych: Positive for: Alert, Oriented (x3) - ECG O2 Sat by Pulse Oximetry: 100 (RA) Pulse Ox Interpretation: Normal Medical Decision Making Medical Decision Making: Time: 163 Impression: Lower Back Pain Plan: CT Lumbar Spine w/o Contrast Urine Toradol 60 mg IM Tylenol 650 mg PO UA Time: 1818 FINDINGS: ALIGNMENT: Bony alignment is anatomic. DISCS/DEGENERATIVE CHANGES: T12/L1: No significant central canal or neural foraminal stenosis. L1/L2: No significant central canal or neural foraminal stenosis. L2/L3: No significant central canal or neural foraminal stenosis. L3/4: No significant central canal or neural foraminal stenosis. L4/5: No significant central canal or neural foraminal stenosis. L5/S1: No significant central canal or neural foraminal stenosis. There is a prominent posterior disc bulge at the L5-S1 level. BONES: No acute fracture or aggressive appearing osseous lesion. SOFT TISSUES: The soft tissues are unremarkable. MISCELLANEOUS: No abnormal contrast enhancement. IMPRESSION: No acute lumbar spine abnormality. Prominent posterior disc bulge L5-S1 level. Clinical correlation advised. Electronically signed on Jan 20, 2019 6:19:31 PM EDT by: Ivan Baez M.D., Certified by ABR, Diagnostic Radiology Scribe Attestation: Documented by Marcelino Garcia, acting as a scribe Lauro Storey PA-C Provider Scribe Attestation: All medical record entries made by the Scribe were at my direction and personally dictated by me. I have reviewed the chart and agree that the record accurately reflects my personal performance of the history, physical exam, medical decision making, and the department course for this patient. I have also personally directed, reviewed, and agree with the discharge instructions and disposition. Disposition - Clinical Impression Clinical Impression: Low back pain - Patient ED Disposition Is Patient to be Admitted: No Counseled Patient/Family Regarding: Studies Performed, Diagnosis, Need For Followup, Rx Given - Disposition Referrals: [facility] [place] [Outside] Disposition: Routine/Home Disposition Time: 18:58 Condition: STABLE Prescriptions: Cyclobenzaprine [Flexeril] 10 mg PO TID #27 tab Diclofenac Potassium 50 mg PO BID #20 tablet Instructions: Low Back Pain (DC), Low Back Pain in Adults, Chronic Pain, Back Exercises Forms: Android [employer] (Northern Irish)
[2019-01-20 16:59] LABS: SQUAMOUS EPITHIAL 8 /hpf (0-5); URINE BACTERIA RARE (<OCC); URINE BILIRUBIN NEGATIVE (NEGATIVE); URINE BLOOD NEGATIVE (NEGATIVE); URINE CLARITY CLOUDY (Clear); URINE COLOR YELLOW (YELLOW); URINE GLUCOSE (UA) NEG (NEGATIVE); URINE LEUKOCYTE ESTERASE NEG Leu/uL (Negative); URINE PROTEIN NEGATIVE (NEGATIVE); URINE UROBILINOGEN 0.2-1.0 mg/dL (0.2-1.0)
[2019-01-20 19:03] VITALS: BP 127/75; PULSE 72; TEMP 97.7
--- NOTE | 2019-01-21 10:17 | CT ---
Date of service: 01/20/2019 PROCEDURE: CT Lumbar Spine without contrast HISTORY: Vertebral tenderness with reduced ROM COMPARISON: None available. TECHNIQUE: Axial computed tomography images were obtained of the lumbar spine without the use of intravenous contrast. Coronal and sagittal reformatted images were created and reviewed. Radiation dose: Total exam DLP = 1371.12 mGy-cm. This CT exam was performed using one or more of the following dose reduction techniques: Automated exposure control, adjustment of the mA and/or kV according to patient size, and/or use of iterative reconstruction technique. FINDINGS: VERTEBRAE: Unremarkable. No fracture. Normal alignment. DISCS/SPINAL CANAL/NEURAL FORAMINA: L1-2: Disc space height maintained. No disc herniation or significant disc bulges. The overall central bony canal and exit foramina appear adequate. L2-3: Disc space height maintained. No disc herniation or significant disc bulges. The overall central bony canal and exit foramina appear adequate L3-4: Disc space height maintained. No disc herniation or significant disc bulges. The overall central bony canal and exit foramina appear adequate L4-5: Disc space height maintained. No disc herniation. Small asymmetric broad-based bulge of the posterior annulus seen centrally into the left.. The overall central bony canal and exit foramina appear adequate L5-S1: Disc space height maintained. Minimal of central and bilateral disc bulge the overall central bony canal and exit foramina appear adequate PARASPINAL SOFT TISSUES: Unremarkable. OTHER FINDINGS: Note made of small amount of vacuum phenomena both SI joints. IMPRESSION: No acute fractures. Minimal central and bilateral disc bulge L5-S1 level. Central canal and exit foramina appear adequate.. There also some minor asymmetric broad-based bulge of the posterior annulus centrally into the left seen at the L4-L5 level. The remaining levels are unremarkable.
== END 2019-01-20 19:05 | disposition home or self-care (01) ==
LOC: H.ER 16:03
DX: M54.5 Low back pain (principal)
CPT/HCPCS: 72131; 81003; 81025; 96372; 99283; J1885